=== PATIENT | female | born 1995 | race Caucasian/White ===

== ENCOUNTER 2020-02-26 04:27 | Emergency (ER) | payer BC ==
[~2020-02-26] VITALS: Ht 157.5 cm; Wt 67.7 kg
[2020-02-26 04:34] VITALS: BP 126/82; TEMP 98.4
[2020-02-26 05:21] VITALS: PULSE 76
== END 2020-02-26 05:10 | disposition home or self-care (01) ==
LOC: COL.ER 04:27
DX: S93.401A Sprain of unspecified ligament of right ankle, initial encounter (principal); X50.1XXA Overexertion from prolonged static or awkward postures, initial encounter; Y92.009 Unspecified place in unspecified non-institutional (private) residence as the place of occurrence of the external cause

== ENCOUNTER → 2021-08-06 | Outpatient (CLI) | payer BC | LOC: DIA.ED 09:49 | DX: O24.419 Gestational diabetes mellitus in pregnancy, unspecified control (principal) | CPT/HCPCS: G0108 ==

== ENCOUNTER → 2021-08-27 | Outpatient (CLI) | payer BC, OTHER ==
[~2021-08-27] MED LIST: IBU800 M1 PO; PRENATAL TABLET PO; VALTREX 50500 MG/TAB PO
== END ==
LOC: DIA.ED 09:03
DX: O24.419 Gestational diabetes mellitus in pregnancy, unspecified control (principal)
CPT/HCPCS: G0108

== ENCOUNTER 2021-10-03 06:31 | Inpatient (IN) | payer BC, OTHER ==
[~2021-10-03] VITALS: Ht 160 cm; Wt 93.2 kg
[2021-10-04] VITALS (37 sets, daily range): BP systolic 101–140; BP diastolic 55–80; PULSE 73–114; TEMP 97.1–98.3
--- NOTE | 2021-10-04 06:40 | NUR ---
Patient ambulatory to LR6 with spouse, changed into gown, FHR/TOCO monitors placed. Patient here for scheduled induction. Patient denies any regular contractions/leaking of fluid/vaginal bleeding/decreased movement. Plan of care discussed and oriented to room. 0700: IV started in right hand, blood obtained and to lab, LR infusing. Assessment completed, consents signs, and packet given. 0710: Patient takes own blood sugar and is 137 at this time. Patient states that she ate toast/ham/eggs about an hour ago. 0728: Pitocin induction discussed and patient agrees with plan. Pitocin started at 2mU per protocol.
[2021-10-04] MEDS ORDERED: PRENATAL TABLET PO (07:10)
[2021-10-04] MEDS ORDERED: VALTREX 50500 MG/TAB PO (07:10)
[2021-10-04 07:45] LABS: BASO # 0.1 K/mm3 (0.0-0.2); BASO % 0.6 % (0.0-2.0); EOS # 0.1 K/mm3 (0.0-0.7); EOS % 1.2 % (0.0-4.0); GRAN # 7.4 K/mm3 (1.4-6.5); GRAN % 67.7 % (42.2-75.2); HEMOGLOBIN 11.6 g/dl (12.5-16.0); LYMPH # 2.2 K/mm3 (1.2-3.4); LYMPH % 20.3 % (20.0-51.0); MEAN CELL VOLUME 85 fl (80.0-100.0); MEAN CORPUSCULAR HEMOGLOBIN 27 pg (27-31); MEAN CORPUSCULAR HGB CONC 32 g/dl (33.0-37.0); MEAN PLATELET VOLUME 11.9 fl (7.4-10.4); MONO % 9.4 % (1.7-9.3); PLATELET COUNT 266 K/mm3 (130-400); RED BLOOD COUNT 4.29 M/mm3 (4.10-5.30); REDCELL DISTRIBUTION WIDTH-CV 14.8 % (11.5-14.5)
[2021-10-04 07:46] LABS: HEMATOCRIT 36.3 % (37.0-47.0)
--- NOTE | 2021-10-04 08:50 | NUR ---
Roles at bedside and assessing patient and FHR strip. 0853: SVE-4/90/-2 and AROM at this time with clear fluid noted. Plan of care discussed. 0900: Patient takes own blood sugar at this time: 89
--- NOTE | 2021-10-04 10:00 | NUR ---
SVE-/-2 and patient requesting epidural, T.Kandy [employer]IM[employer] HUNTER notified. 1014: Patient sitting up for epidural and T. Pinson [employer] HUNTER at bedside. 1025: Test dose given and patient tolerates well. Epidural catheter removed on accident and replaced. 1032: Test dose given and patient tolerates well. 1039: Patient repositioned and plan of care/safety instructions discussed. 1140: Naqvi catheter placed and patient tolerates well. SVE: 6-/-1. Patient takes own blood sugar at this time: 89.
--- NOTE | 2021-10-04 12:30 | NUR ---
Patient takes own blood sugar-79.
--- NOTE | 2021-10-04 13:05 | NUR ---
Roles at bedside assessing patient and FHR strip. 1310: SVE 9-10/100/0
--- NOTE | 2021-10-04 13:55 | NUR ---
SVE-10/100/0 and plan of care discussed and pushing instructions gone over. Naqvi catheter removed at this time. 1405: Patient begins to push with each contraction. 1441: Dr. Schafer at nurses station and notified that we are getting closer to delivery. 1442: Dr. Schafer at bedside and assessing progress. Patient set up for vaginal delivery and patient continues to push with contractions. 1509: Spontaneous vaginal delivery of viable male-head followed by body. to patients abdomen and A.Daniel RN assumes care of infant. Cord clamed x2 by physician and cut by FOB. Cord blood obtained. 1514: Spontaneous delivery of placenta and pitocin bolus started per protocol. 1517: Dr. Schafer injects lidocaine to perineum. Orders for methergine at this time. Fundal massage done. Dr. Schafer begins to repair 4th degree. 1518: Methergine given, see EMAR. Fundal massage done/firm/bleeding WNL 1535: Patient repositioned and ice pack to perineum. Plan of care discussed.
--- NOTE | 2021-10-04 17:25 | NUR ---
Patient ambulates to bathroom with standby assist, voids, pericare done. New gown/underwear/icepack on. Patient ambulates to new room. Oriented to and plan of care discussed.
[2021-10-05 03:00] VITALS: BP 96/53; PULSE 91; TEMP 97.9
[2021-10-05 08:05] VITALS: BP 112/72; PULSE 84; TEMP 97.1
[2021-10-05] MEDS ORDERED: IBU800 M1 PO (09:55)
[2021-10-05 17:05] VITALS: BP 102/79; PULSE 75; TEMP 97.9
== END 2021-10-05 18:20 | disposition home or self-care (01) | DRG 768 ==
LOC: LDR 10-04 06:26 → OB 10-04 06:26 → LDR 10-04 06:30 → OB 10-04 18:22
PROVIDERS: ADMIT Obstetrics & Gynecology
PROC: 10E0XZZ Delivery of Products of Conception, External Approach (ICD-10-PCS; principal; 2021-10-04)
PROC: 0DQP0ZZ Repair Rectum, Open Approach (ICD-10-PCS; 2021-10-04)
PROC: 10907ZC Drainage of Amniotic Fluid, Therapeutic from Products of Conception, Via Natural or Artificial Opening (ICD-10-PCS; 2021-10-04)
PROC: 3E033VJ Introduction of Other Hormone into Peripheral Vein, Percutaneous Approach (ICD-10-PCS; 2021-10-04)
DX: O24.420 Gestational diabetes mellitus in childbirth, diet controlled (principal); Z37.0 Single live birth; O98.52 Other viral diseases complicating childbirth; O70.3 Fourth degree perineal laceration during delivery; O69.81X0 Labor and delivery complicated by cord around neck, without compression, not applicable or unspecified; B00.9 Herpesviral infection, unspecified; O99.344 Other mental disorders complicating childbirth; F41.9 Anxiety disorder, unspecified; Z3A.39 39 weeks gestation of pregnancy; Z23 Encounter for immunization
CPT/HCPCS: J2210; J2590; J7120

== ENCOUNTER → 2021-10-15 | Outpatient (CLI) | payer BC, OTHER ==
--- NOTE | 2021-10-15 13:56 | NUR ---
Pt, Graciela Smith, presents for outpatient consult with 11 day old baby boy, Fuentes Smith, and her spouse. Pt requested a evaluation because she is having to use a nipple shield, and wants to ensure Fuentes is doing well with feeding at the breast in general. Fuentes was born on [birth year] by and weighed 7#12.9oz (3540 gms). He was weighed [facility] on 10/11/21 and reportedly weighed 7#10oz. Today Fuentes weighs 7# 13.8oz Pt is very full causing flat nipples. Pt advised on manual expression of milk around the areola to help Fuentes grasp onto the areola and extend the nipple deeper into his mouth for latching. After manual expression and several attempts, pt gets Fuentes latched without a nipple shield. Pt is advised on a couple ways to get a deeper latch. After the right side Fuentes has a weight gain 1.8oz (50 gms). We did resort to the nipple shield on the left breast as Fuentes was pretty content from the first side. Total weight gain was 2.9 oz (80gms). POC: Continue ad umair. Attempt to soften breast prior to latching if desires to latch without shield. Use shield as needed. Anticipate milk supply will self-regulate with more time. F/U: As scheduled with Dr. Diego. Questions invited and answered.
== END ==
LOC: LAC 13:20
DX: Z39.1 Encounter for care and examination of lactating mother (principal); Z71.89 Other specified counseling